=== PATIENT | male | born 1995 | race African-American/Black ===

== ENCOUNTER 2018-04-04 16:57 | Emergency (ER) | payer SELFPAY | END 2018-04-04 18:05 | disposition home or self-care (01) | LOC: ER 16:57 | DX: S93.402A Sprain of unspecified ligament of left ankle, initial encounter (principal); X58.XXXA Exposure to other specified factors, initial encounter; Y93.67 Activity, basketball; Y92.89 Other specified places as the place of occurrence of the external cause; Y99.8 Other external cause status | CPT/HCPCS: 73610; 73630; 99284 ==